=== PATIENT | male | born 1990 | race Caucasian/White ===

== ENCOUNTER 2022-02-14 08:16 | Emergency (ER) | payer SELFPAY ==
[2022-02-14 08:24] VITALS: BP 118/73; PULSE 90; RESP 17; TEMP 36.6; O2SAT 100; BMI 29.5
--- NOTE | 2022-02-14 08:54 | W.ED.MALEGU ---
HPI - Male Genitourinary General: Chief complaint: Urogenital-Male Stated complaint: Possible STI Time Seen by Provider: 02/14/22 08:36 Source: patient Mode of arrival: ambulatory Limitations: no limitations History of Present Illness: Patient is a 31-year-old male who presents to ED today with a complaint of penile discharge and dysuria over the past 2 to 3 days. Patient states within the last 1 to 2 weeks he has had unprotected vaginal intercourse with a female partner. Patient is not having any testicular/scrotal redness or swelling. No previous history of STDs. MD Complaint: penile discharge and dysuria Onset (ago): day(s) Duration: constant Location: penis Radiation: penis Severity: moderate Quality: burning Relieving factors: none Exacerbating factors: urination Context: new sexual partner Associated symptoms: Reports discharge and dysuria; Deny hematuria, nausea, urinary incontinence or vomiting Related Data: Sexually active: Yes Review of Systems Const: Denies: fever(s), chills, body aches, fatigue or malaise GI: Denies: abdominal pain, nausea, vomiting or diarrhea : Reports: dysuria and penile discharge; Denies: flank pain, difficulty urinating, urinary frequency, urinary urgency, urinary hesitancy, urinary dribbling, urinary incontinence, hematuria, genital pain, genital lesions, testicular pain, testicular mass or scrotal swelling Skin/Breast: Denies: rash Physical Exam Const: COMMON NORMALS: no acute distress, average body habitus, no limitations, healthy appearing, alert and well nourished GI: COMMON NORMALS: Normal to inspection, nondistended, normoactive bowel sounds present, Soft to palpation, non-tender, No hepatosplenomegaly present and no masses PALPATION: Yes Soft to palpation and Yes No hepatosplenomegaly present : COMMON NORMALS: Yes no CVA tenderness, Yes Testes normal, Yes scrotum normal, Yes no scrotal swelling and Yes No hernias present BLADDER/KIDNEY EXAM: Yes no CVA tenderness MALE GROIN/PERINEUM EXAM: No Genital lesions present PENIS: circumcised, no vesicles and No Genital lesions present MEATUS: meatal discharge SCROTUM: Yes testes descended bilaterally TESTES: Yes testicular lie normal Back/Pelvis: COMMON NORMALS: no CVA tenderness Neuro: SENSORIUM/ORIENTATION: Yes alert Course Vital Signs: Vital signs: Vital Signs Temperature 97.9 F 02/14/22 08:24 Pulse Rate 83 02/14/22 09:50 Respiratory Rate 17 02/14/22 08:24 Blood Pressure 115/87 02/14/22 09:50 Pulse Oximetry 98 02/14/22 09:50 Oxygen Delivery Me thod 02/14/22 09:50 MDM - Male Medical Decision Making We will run gonorrhea/chlamydia testing off of his urine. He is requesting prophylactic treatment at this time. Patient was given IM Rocephin will be placed on oral Doxycycline. Sexual abstinence and test of cure discussed. If positive he will need to alert sexual partners. Discharge Plan Discharge Patient Disposition: Home Clinical Impression: Urethritis Condition: Stable Prescriptions: New doxycycline monohydrate 100 mg capsule 100 mg PO Q12H 7 Days Qty: 14 0RF Discharge Orders: Discharge ED (Routine); Ordered 02/14/22 Ordered By: Mary Fleming Patient Instructions: Urethritis - Male Activity Restrictions/Additional Instructions: As we discussed to labs should contact you if your gonorrhea/chlamydia results come back positive. If you have not heard from lab and 48 hours you may contact us to obtain results. No sexual contact until you have finished full antibiotic course. Ideally you will receive a test of cure make sure infection has eradicated. This can be completed at the health department. You may return to the emergency department for worsening penile discharge, testicular/scrotal redness, swelling, pain, fevers, or any other concerns you may have. Coding Level of Care Code ED Director Of [employer]quisition Marketing for Shyanne Negrete
[2022-02-14 09:50] VITALS: BP 115/87; PULSE 83; O2SAT 98
--- NOTE | 2022-02-15 15:38 | PC.NURSE ---
Informed by lab of positive gonorrhea results. Called and informed patient after speaking with Dr. Garcia. In addition to rx given and medication received in the ER I called in an additional rx of Doxycycline 100 mg q 12 hours x 3 days to the [facility] pharmacy in [place], [place] per verbal orders of Dr. Garcia. Patient is aware.
== END 2022-02-14 09:45 | disposition home or self-care (01) ==
PROVIDERS: Emergency Provider Physician Assistant
DX: N34.2 Other urethritis (principal)
CPT/HCPCS: 87491; 87591; 96372; 99284; J0696